=== PATIENT | female | born 1975 | race Caucasian/White ===

== ENCOUNTER → 2019-10-24 | Outpatient (CLI) | payer BC ==
--- NOTE | 2019-10-24 12:34 | RADIOLOGY REPORT (SQ) ---
EXAM DESCRIPTION: BARIUM SWALLOW ESOPHAGUS IMAGES COMPLETED DATE/TIME: 10/24/2019 9:19 am REASON FOR STUDY: R13.10 DYSPHAGIA, UNSPECIFIED R13.10 DYSPHAGIA, UNSPECIFIED COMPARISON: None. TECHNIQUE: Under fluoroscopic guidance, patient ingested effervescent granules followed by thick and thin barium. Fluoroscopic spot images and routine radiographic images acquired and stored on PACS. 12 MM BARIUM TABLET GIVEN: Yes. No significant delay in passage. LIMITATIONS: None. FLUOROSCOPY TIME: FLUORO TIME: 2.9 minutes of fluoroscopy was used 12 images saved to PACS. FINDINGS: NEUROMUSCULAR COORDINATION OF SWALLOW: Normal. No aspiration. Mild cricopharyngeal hypert rophy. Small Zenker's diverticulum which reflux back into the oropharynx. ESOPHAGEAL MOTILITY: Mild esophageal dysmotility with stasis and tertiary contractions. With all No esophageal spasm. ESOPHAGEAL MUCOSA: Normal mucosa without masses or ulceration. GASTRO-ESOPHAGEAL JUNCTION: No hiatal hernia. Mild gastroesophageal reflux seen. The Sp fundopl ication appears intact. NON-GI TRACT STRUCTURES: No significant finding. OTHER: No other significant finding. IMPRESSION: 1. TINY ZENKER'S DIVERTICULUM WITH REFLUX OF CONTRAST FROM THE DIVERTICULUM INTO THE OR OPHARYNX. 2. MILD GASTROESOPHAGEAL REFLUX. NO EVIDENCE OF HIATAL HERNIA. 3. MILD ESOPHAGEAL DYSMOTILITY. COMMENT: Quality ID [id number]: Final reports for procedures using fluoroscopy that document radiation exp osure indices, or exposure time and number of fluorographic images (if radiation exposure indices are not available) TECHNICAL DOCUMENTATION: JOB ID: [id number] 2010 [employer]- All Rights Reserved Reading location - IP/workstation name: [email or web address] [id number]
== END ==
LOC: RAD 08:44
PROVIDERS: ATTEND Internal Medicine Gastroenterology
DX: R13.10 Dysphagia, unspecified (principal)
CPT/HCPCS: 74220

== ENCOUNTER 2019-12-22 16:19 | Emergency (ER) | payer BC, OTHER ==
[2019-12-22] MEDS ORDERED: DEXAMETHASONE SOD PHOS INJ 10 MG/1 ML VIAL IM ONE (19:00)
[2019-12-22] MEDS ORDERED: METHOCARBAMOL 500 MG TABLET PO ONE (19:00)
--- NOTE | 2019-12-22 19:03 | ER Document Report ---
HPI - HPI Time Seen by Provider: 12/22/19 18:51 Pain Level: 3 Context: Patient is a 44-year-old female presents emergency department with a chief complaint of neck pain. Patient states she is not sure if she slept wrong, but when she woke up yesterday she had pain in her neck. She went to the chiropractor and they try to do some adjustments, but did not have any relief of her symptoms. This morning she went back to the chiropractor and was referred to her primary care doctor. She called her primary care provider and they referred her to the emergency department. Patient took Flexeril last night, but had little relief of her symptoms. - ROS Systems Reviewed and Negative: Yes All other systems reviewed and negative - CONSTITUTIONAL Constitutional: DENIES: Fever, Chills - RESPIRATORY Respiratory: DENIES: Trouble Breathing, Coughing - GASTROINTESTINAL Gastrointestinal: DENIES: Nausea, Patient vomiting - MUSCULOSKELETAL Musculoskeletal: REPORTS: Extremity pain - Left shoulder, Neck Pain - Left. DENIES: Swelling - DERM Skin Color: Normal Skin Problems: None Past Medical History - General Information source: Patient - Social History Smoking Status: Unknown if Ever Smoked Chew tobacco use (# tins/day): No Frequency of alcohol use: None Drug Abuse: None Family History: Reviewed & Not Pertinent Patient has homicidal ideation: No Vertical Provider Document - CONSTITUTIONAL Agree With Documented VS: Yes Exam Limitations: No Limitations General Appearance: No Apparent Distress - HEENT HEENT: Atraumatic, Normocephalic, PERRLA - NECK Neck: Normal Inspection - RESPIRATORY Respiratory: Breath Sounds Normal, No Respiratory Distress - CARDIOVASCULAR Cardiovascular: Regular Rate, Regular Rhythm Pulses: Normal: Radial - MUSCULOSKELETAL/EXTREMETIES Musculoskeletal/Extremeties: FROM, Tender - Left shoulder/neck tenderness - NEURO Level of Consciousness: Awake, Alert, Appropriate - DERM Integumentary: Warm, Dry, No Rash Course - Re-evaluation Re-evalutation: 12/22/19 Patient's physical exam is consistent with muscle tension in the left side of her neck. No evidence of meningitis, or any life-threatening etiology at this time. We will start the patient on Robaxin, as she is already on Flexeril. Capillary refill less than 3 seconds. Radial pulse 2+. No vascular compromise noted. Follow-up precautions were given. Verbal discharge instructions were given to the patient. They verbalized understanding. They are stable for discharge. - Vital Signs Vital signs: Temp Pulse Resp BP Pulse Ox 98.3 F 74 18 121/84 99 12/22/19 16:24 12/22/19 16:24 12/22/19 16:24 12/22/19 16:24 12/22/19 16:24 Discharge - Discharge Clinical Impression: Neck pain Condition: Stable Disposition: HOME, SELF-CARE Additional Instructions: You were seen today in the emergency department for neck pain. Your neck pain is due to muscle tension. You received a dose of steroids here in the emergency department. You are also being sent home with Robaxin. Please take these as needed. Continue to take ibuprofen 600 mg every 6 hours for your pain, as this will help with the inflammation in your neck. Prescriptions: Methocarbamol [Robaxin 750 mg Tablet] 750 mg PO Q4 PRN #14 tablet PRN Reason: Forms: Return to Work Referrals: RENÉE ERAZO PA [Primary Care Provider] - Follow up in 3-5 days
[2019-12-22 19:25] VITALS: BP 124/80
== END 2019-12-22 19:22 | disposition home or self-care (01) ==
LOC: ER 16:19
DX: M54.2 Cervicalgia (principal); M25.512 Pain in left shoulder
CPT/HCPCS: 99283; 96372; J1100